=== PATIENT | female | born 1990 | race Caucasian/White ===

== ENCOUNTER 2018-01-30 18:59 | Emergency (ER) | payer SELFPAY ==
[~2018-01-30] VITALS: Ht 170.2 cm; Wt 113.6 kg
[~2018-01-30 18:59] MED LIST: BENADRYL25 M2 PO; MICROGESTIN 1/21 TAB PO; PREDNISONE20 MG PO
[2018-01-30 19:04] VITALS: BP 138/99
[2018-01-30 20:07] LABS: BASO % 0.2 % (0.0-2.0); EOS # 0.1 (0.0-0.7); EOS % 0.8 % (0-4.0); GRAN % 84.1 % (42.2-75.2); HEMATOCRIT 42.7 % (37.0-47.0); HEMOGLOBIN 14.2 g/dl (12.5-16.0); LYMPH # 0.9 (1.2-3.4); LYMPH % 9.5 % (20.0-51.0); MEAN CELL VOLUME 82 fl (80.0-100.0); MEAN CORPUSCULAR HEMOGLOBIN 27 pg (27.0-31.0); MEAN CORPUSCULAR HGB CONC 33 g/dl (33.0-37.0); MEAN PLATELET VOLUME 8.8 fl (7.4-10.4); MONO # 0.5 (0.1-0.6); MONO % 4.8 % (1.7-9.3); PLATELET COUNT 322 K/mm3 (130-400); RED BLOOD COUNT 5.22 M/mm3 (4.10-5.30); REDCELL DISTRIBUTION WIDTH-CV 14.2 % (11.5-14.5)
[2018-01-30 20:24] LABS: ALBUMIN 4.7 gm/dL (3.5-5.0); BILIRUBIN,TOTAL 0.4 mg/dL (0.0-1.0); CALCIUM 9.4 mg/dL (8.4-10.2); CREATININE, serum 0.81 mg/dL (0.52-1.25); POTASSIUM 4.3 mmol/L (3.4-5.0); TOTAL PROTEIN 8.1 gm/dL (6.4-8.2)
[2018-01-30] MEDS ORDERED: ZOFRAN ODT4 MG PO (20:43)
[2018-01-30 21:38] VITALS: PULSE 128; TEMP 100.1
== END 2018-01-30 21:37 | disposition home or self-care (01) ==
LOC: COL.ER 18:59
PROVIDERS: Emergency Medicine
DX: R11.2 Nausea with vomiting, unspecified (principal); R19.7 Diarrhea, unspecified
CPT/HCPCS: J2060; J2405; J2550; J7030